=== PATIENT | male | born 1995 | race Two or more races ===

== ENCOUNTER 2019-11-06 03:47 | Emergency (ER) | payer OTHER ==
[~2019-11-06] VITALS: Ht 175.3 cm; Wt 65.0 kg
--- NOTE | 2019-11-06 04:08 | NUR ---
PT BIB [facility] AFTER BEING CALLED DUE TO PT KNOCKING ON HOUSE WINDOWS AND TALKING TO SELF. PT REPORTS SMOKING MARIJUANA, UNSURE IF ANYTHING ELSE WAS IN IT, EARLIER THIS EVENING THEN STARTED HAVING VOICES AND HALLUCINATIONS. PT IS CONCERNED REGARDING HIS SAFETY DUE TO PARANOIA THAT SOMEONE IS AFTER HIM. OTHERWISE PT IS NAD, DENIES ADDITIONAL NEEDS AT THIS TIME. ANOx4, DENIES PMH. WCTM PT PLACED ON SPO2/ECG/BP MONITORING. PT IS [facility]ARD[facility] RAVINDER SHAFFER AT BS FOR EVAL AND POC
[2019-11-06] MEDS ORDERED: LORazepam 1MG TABLET ONE (04:17)
[2019-11-06] MEDS ORDERED: PLEASE ENTER ALLERGIES MC SCH (04:30)
[2019-11-06] MEDS ORDERED: LORazepam 1MG TABLET PO ONE (04:30)
[2019-11-06 04:33] LABS: BASOPHILS # (AUTO) 0.09 x10^3/uL (0-0.1); BASOPHILS % (AUTO) 1 % (0-1); EOSINOPHILS # (AUTO) 0.04 x10^3/uL (0-0.4); EOSINOPHILS % (AUTO) 0 % (1-7); LYMPHOCYTES # (AUTO) 0.98 x10^3/uL (1-3.4); LYMPHOCYTES % (AUTO) 10 % (22-44); MD NO; MEAN CORPUSCULAR HEMOGLOBIN 29.9 pg (27.5-34.5); MEAN CORPUSCULAR HGB CONC 33.2 g/dL (33.2-36.2); MEAN CORPUSCULAR VOLUME 90.1 fL (81-97); MEAN PLATELET VOLUME 8.5 fL (7.4-10.4); MONOCYTES # (AUTO) 0.34 x10^3/uL (0.2-0.8); MONOCYTES % (AUTO) 3 % (2-9); NEUTROPHILS # (AUTO) 8.49 x10^3/uL (1.8-6.8); NEUTROPHILS % (AUTO) 85 % (42-75); PLATELET COUNT 301 x10^3/uL (130-400); RED BLOOD COUNT 5.11 x10^6/uL (4.38-5.82); RED CELL DISTRIBUTION WIDTH 13.1 % (9.4-14.8)
[2019-11-06 04:38] LABS: AMPHETAMINE SCREEN, URINE Positive (Negative); BARBITURATE SCREEN, URINE Negative (Negative); BENZODIAZEPINE SCREEN, URINE Negative (Negative); CANNABINOID SCREEN, URINE Positive (Negative); COCAINE SCREEN, URINE Negative (Negative); METHADONE SCREEN, URINE Negative (Negative); OPIATE SCREEN, URINE Negative (Negative)
[2019-11-06 04:40] LABS: ALBUMIN 4.1 g/dL (3.4-5.0); ANION GAP 6 mmol/L (5-15); CALCIUM 8.6 mg/dL (8.5-10.1); CHLORIDE 106 mmol/L (98-107)
[2019-11-06 04:41] LABS: SALICYLATE LEVEL < 1.7 mg/dL (2.8-20.0)
[2019-11-06 04:44] LABS: ALANINE AMINOTRANSFERASE 32 U/L (12-78); ALKALINE PHOSPHATASE 108 U/L (45-117); BILIRUBIN,TOTAL 0.2 mg/dL (0.2-1.0); CREATININE 1.14 mg/dL (0.7-1.3); TOTAL PROTEIN 7.7 g/dL (6.4-8.2)
--- NOTE | 2019-11-06 04:55 | NUR ---
pt resting on gurney, NAD, appears more relaxed and less anxious. call light on lap, denies additional needs at this time. wctm.
--- NOTE | 2019-11-06 05:27 | NUR ---
pt resting on gurney, denies wanting a warm blanket or any other needs. pt denies hallucinations at this time, both visual and auditory. pt still appears paranoid and slightly worried to this RN. RERE, VSS, WCTM. MTF.
[2019-11-06 06:30] VITALS: BP 111/71
--- NOTE | 2019-11-06 06:31 | NUR ---
PT LAYING IN GURNEY, PROVIDED WARM BLANKETS, NO CHANGES IN CONDITION AT THIS TIME, NAD, DENIES ADDITIONAL NEEDS, VSS, WCTM. WAITING FOR MTF
--- NOTE | 2019-11-06 07:00 | NUR ---
late entry: BS report to Mak IRAHETA. pt care transferred at this time.
--- NOTE | 2019-11-06 07:01 | NUR ---
REPORT FROM ROSA, PT RESTING.
--- NOTE | 2019-11-06 08:30 | NUR ---
pt sleeping, vss
--- NOTE | 2019-11-06 10:24 | NUR ---
PT READY FOR DC. PT HAS STEADY GAIT.
== END 2019-11-06 10:26 | disposition home or self-care (01) ==
LOC: ED 05:00
DX: F15.150 Other stimulant abuse with stimulant-induced psychotic disorder with delusions (principal); F12.150 Cannabis abuse with psychotic disorder with delusions; F17.210 Nicotine dependence, cigarettes, uncomplicated; Z72.9 Problem related to lifestyle, unspecified
CPT/HCPCS: 36415; 80053; 80307; 85025; 99283

== ENCOUNTER 2019-11-07 03:26 | Emergency (ER) | payer SELFPAY ==
[~2019-11-07] VITALS: Ht 170.2 cm; Wt 65.0 kg
--- NOTE | 2019-11-07 03:36 | NUR ---
THIS IS A 24 YO M W/ C/O PARANOIA AND ANXIETY. PT REPORTS USING METH EARLIER THIS EVENING. PT REPORTS DESIRE TO STOP USING AND IS AWARE METH MAY BE THE CAUSE OF THESE FEELINGS. PT RESTING ON GURNEY W/ CALL LIGHT IN REACH. RESP EVEN AND UNLABORED, NADN. AWAITING ED EVAL.
[2019-11-07] MEDS ORDERED: ZIPRASIDONE 20 MG INJ IM ONE ×2 (03:48→04:00)
--- NOTE | 2019-11-07 04:07 | NUR ---
PT MEDICATED PER EMAR W/O INCIDENT. PROVIDED WARM BLANKET FOR COMFORT. RESTING ON [employer] W/ CALL LIGHT IN REACH. L[address] [facility].
--- NOTE | 2019-11-07 07:11 | NUR ---
Taking over care of patient, SBAR received from MYRTLE Prince at patient bedside.
--- NOTE | 2019-11-07 07:52 | NUR ---
Patient sleeping, chest rise and fall observed, O2 saturation 98% on RA, safety measures in place.
--- NOTE | 2019-11-07 09:00 | NUR ---
PATIENT MORE AWAKE &ALERT, WATER PROVIDED, CALL LIGHT WITHIN REACH, NO FURTHER NEEDS AT THIS TIME.
[2019-11-07 09:59] VITALS: BP 100/56
--- NOTE | 2019-11-07 10:03 | NUR ---
PATIENT SLEEPING, VITAL SIGNS WITHIN NORMAL LIMITS, CALL LIGHT WITHIN REACH AND BED RAILS UP X2.
== END 2019-11-07 11:01 | disposition home or self-care (01) ==
LOC: ED 03:35
DX: F15.151 Other stimulant abuse with stimulant-induced psychotic disorder with hallucinations (principal); F15.150 Other stimulant abuse with stimulant-induced psychotic disorder with delusions; F17.210 Nicotine dependence, cigarettes, uncomplicated; R51 Headache; R50.9 Fever, unspecified; Z72.9 Problem related to lifestyle, unspecified
CPT/HCPCS: 96372; 99285; 99406; J3486